=== PATIENT | male | born 1965 | race Caucasian/White ===

== ENCOUNTER 2023-05-27 09:25 | Outpatient (CLI) | payer BC, SELFPAY ==
--- NOTE | ~2023-05-27 | XR_ITS ---
EXAMINATION: XR foot RT 2V DATE: 05/27/2023 09:50 INDICATION: Metatarsophalangeal gout with pain at the right great toe. TECHNIQUE: Dorsoplantar and lateral views of the right foot were obtained. COMPARISON: None. FINDINGS: Bone alignment is normal. No fracture. Polyarticular osteoarthritis, moderate severity at the first m etatarsophalangeal joint and mild at multiple tarsal metatarsal and interphalangeal joints. No eviden t erosions to suggest gout or other inflammatory arthritis. Small plantar calcaneal spur. Soft tissue s are unremarkable. No ankle joint effusion. IMPRESSION: 1. Polyarticular osteoarthritis, moderate at the right first metatarsophalangeal joint and mild at se veral additional joints in the mid and forefoot. Reviewed, dictated and finalized at location A. [employer] IMPRESSION: 1. Polyarticular osteoarthritis, moderate at the right first metatarsophalangea l joint and mild at several additional joints in the mid and forefoot.
== END 2023-05-27 09:26 ==
PROVIDERS: PCP Nurse Practitioner Family; Visit Provider Nurse Practitioner Family
DX: M10.9 Gout, unspecified (principal); M19.071 Primary osteoarthritis, right ankle and foot
CPT/HCPCS: 73620

== ENCOUNTER 2024-05-13 02:23 | Day surgery (SDC) | payer BC, SELFPAY ==
[2024-04-26 13:17] VITALS: BMI 36.0
--- NOTE | 2024-05-12 16:15 | WPDANESEPP ---
Anes - Eval Pre Procedure Procedure: Operation Date: 05/13/24 08:30 Proposed Procedures p Screening Colonoscopy - Mark Rosenberg DO Date/Time: 05/12/24 16:15 Pre Op Diagnosis: Screening for malignant neoplasm of colon Patient Data Age: 58 Gender: M Height: 1.83 m Weight: 120.5 kg Allergies Allergy/AdvReac Type Severity Reaction Status Date / Time No Known Allergies Allergy Verified 04/26/24 12:58 Home Medications Medication Instructions Recorded Confirmed Type tadalafil 5 mg tablet 5 mg PO DAILY 05/27/23 04/26/24 History lisinopril 20 1 tablet PO DAILY #90 tabs 05/11/24 Rx mg-hydrochlorothiazide 25 mg tablet Patient hx anesthesia problems: none Family hx anesthesia problems: none Results Review: All pre-operative results and documents have been reviewed as part of the pre-operative evaluation. [facility] Past Medical History Medical History Arthralgia of foot BMI 38.0-38.9,adult Erectile dysfunction Melanoma Retrograde ejaculation Surgical History Surgical History Hx of appendectomy Family History Family History Father Hypertension Diabetes mellitus Sibling Patient's brother is in good health Hypertension Mother Family history of lung cancer, Onset Age: 62 Patient's mother is Other Family history of kidney disease Social History Social History Smoking status: Never smoker Second hand tobacco smoke exposure: Yes Alcohol intake: current Drinks per week: 6 Substance use: never Substance use type: does not use Do You Feel Safe in your Home?: Yes Lack of Transportation: No Lack of Food: Never True Current Housing: I Have Housing Concerned About Future Housing: No Difficulty Paying Gas/Electric Bills: No Difficulty Paying for Meds: No Currently Unemployed: No Education: Bachelor's Degree Difficulty w/ Childcare or Family Care: No Living arrangements: with family Occupation/Education: occupation 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
[2024-05-13 07:28] VITALS: BP 150/90; PULSE 81; RESP 16; TEMP 36.3; O2SAT 96
[2024-05-13] MEDS: LACTATED RINGERS 1,000 ML 150 ML IV CONT (07:36)
--- NOTE | 2024-05-13 07:43 | P.PNAN_ITS ---
Anes - Eval Final PreProcedure Day of Procedure 05/13/24 07:43 Patient weight: obese Heart: regular rate and rhythm Lungs: clear to auscultation Airway: Mallampati scale class II Neurological: alert and oriented Last oral intake: >/= 8 hours ASA classification: III Emergent: no Anesthetic plan: proceed Anesthesia type and monitoring: general GIVS and standard monitoring Results Review: All pre-operative results and documents have been reviewed as part of the pre- operative evaluation. Informed Consent: The patient's anesthetic plan and its attendant risks and benefits were discussed with the patient/family/POA. Questions were solicited and answers provided to the satisfaction of the patient/family/POA.
--- NOTE | 2024-05-13 08:36 | PM.IMHP ---
H&P: HPI History of Present Illness Date/Time: 05/13/24 08:36 Chief Complaint: History of colon polyps Narrative: this is a 58-year-old man who presents for colonoscopy. His last colonoscopy was 5 years ago and several polyps were removed at that time. He denies any hematochezia or melena. He denies family history of cancer. Review of Systems Review of Systems: All systems reviewed & are unremarkable except as noted in HPI and below Constitutional: Constitutional: Denies chills, Denies fever(s), Denies headache(s) and Denies weight loss Eyes: Eyes: Denies change in vision ENT: Denies dizziness, Denies headache(s), Denies neck mass and Denies throat swelling Cardiovascular: Cardiovascular: Denies chest pain, Denies lightheadedness and Denies dyspnea Respiratory: Respiratory: Denies cough, Denies dyspnea and Denies wheezing Gastrointestinal: Gastrointestinal: Denies abdominal pain, Denies change in bowel habits, Denies nausea and Denies vomiting Genitourinary: Genitourinary: Denies hematuria and Denies dysuria Musculoskeletal: Musculoskeletal: Reports as per HPI Integumentary/Breasts: Skin/Breast: Reports as per HPI Neurologic: Denies dizziness and Denies headache(s) Allergic/Immunologic: Allergic/Immunologic: Denies throat swelling and Denies wheezing PMFSH Past Medical History Medical History Arthralgia of foot BMI 38.0-38.9,adult Erectile dysfunction Melanoma Retrograde ejaculation Surgical History Surgical History Hx of appendectomy Family History Family History Father Hypertension Diabetes mellitus Sibling Patient's brother is in good health Hypertension Mother Family history of lung cancer, Onset Age: 62 Patient's mother is Other Family history of kidney disease Social History Social History Smoking status: Never smoker Second hand tobacco smoke exposure: Yes Alcohol intake: current Drinks per week: 6 Substance use: never Substance use type: does not use Do You Feel Safe in your Home?: Yes Lack of Transportation: No Lack of Food: Never True Current Housing: I Have Housing Concerned About Future Housing: No Difficulty Paying Gas/Electric Bills: No Difficulty Paying for Meds: No Currently Unemployed: No Education: Bachelor's Degree Difficulty w/ Childcare or Family Care: No Living arrangements: with family Occupation/Education: occupation 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 Gender identity (if verbalized by the patient): Male Spiritual care concerns: No Meds Home Medications and Allergies Home Medications Medication Instructions Recorded Confirmed Type tadalafil 5 mg tablet 5 mg PO DAILY 05/27/23 05/13/24 History lisinopril 20 1 tablet PO DAILY #90 tabs 05/11/24 05/13/24 Rx mg-hydrochlorothiazide 25 mg tablet Allergies Allergy/AdvReac Type Severity Reaction Status Date / Time No Known Allergies Allergy Verified 05/13/24 07:25 Vital Signs Vital Signs - 24 hr 05/13/24 07:28 Temperature 97.4 F L Pulse Rate 81 Respiratory Rate 16 Blood Pressure 150/90 H Pulse Oximetry 96 Oxygen Delivery Room Air Exam Const: General: no acute distress and alert Orientation/consciousness: patient oriented x3 HENMT: Head: normocephalic and atraumatic Ears: hearing grossly normal bilaterally Face/Nose/Sinus: Normal nares present Mouth: Yes Normal oral and palatal mucosa present Eyes: Periorbital: periorbital findings normal Sclera: sclerae normal EOM: EOMs intact bilaterally Neck: Neck: normal visual inspection, no lymphadenopathy and trachea midline Chest: Chest palpation & inspection: normal inspection of the chest Resp: Effort & Inspection: normal respiratory effort Auscultation: clear to auscultation bilaterally Cardio: Jugular venous distension: no JVD Rate: regular rate Rhythm: regular rhythm Heart sounds: S1 normal heart sound present and S2 normal heart sound present Peripheral pulses: Peripheral pulses 2+ throughout GI: Inspection: normal to inspection GI Palp: Yes Soft to palpation, No Tenderness to palpation present (GI), No Guarding due to palpation present (GI) and No Rebound tenderness present Percussion: Yes normal to percussion Auscultation: normal bowel sounds : General: Yes no CVA tenderness Back/Spine/Pelvis: Back: no CVA tenderness Neuro: General: patient oriented x3, no focal motor deficits and CN's II-XI intact bilaterally Cognition (Neuro): normal cognition Speech: normal speech Motor exam (neuro): 5/5 motor strength present throughout Extrem: General: capillary refill normal and no clubbing, cyanosis or edema Assessment and Plan Assessment and plan (1) Hx of colonic polyps: Code(s): Z86.0100 - Personal history of colon polyps, unspecified Status: Acute Assessment and Plan: I have recommended colonoscopy. I have discussed the procedure, risks, benefits, and alternatives. Questions were answered. Patient is agreeable to proceed.
[2024-05-13 09:10] VITALS: BP 125/73; PULSE 67; RESP 18; O2SAT 97
[2024-05-13 09:20] VITALS: BP 129/78; PULSE 70; RESP 20; O2SAT 100
[2024-05-13 09:30] VITALS: BP 124/80; PULSE 68; RESP 20; O2SAT 100
== END 2024-05-13 09:42 | disposition home or self-care (01) ==
PROVIDERS: PCP Family Medicine; Visit Provider Surgery
PROC: 0DJD8ZZ Inspection of Lower Intestinal Tract, Via Natural or Artificial Opening Endoscopic (ICD-10-PCS; CPT 45378; principal; 2024-05-13 08:30)
DX: Z12.11 Encounter for screening for malignant neoplasm of colon (principal); D12.5 Benign neoplasm of sigmoid colon; K63.5 Polyp of colon; K57.30 Diverticulosis of large intestine without perforation or abscess without bleeding; E66.9 Obesity, unspecified; Z68.37 Body mass index [BMI] 37.0-37.9, adult
CPT/HCPCS: 45385; 88305; J2003; J2704; J7120